=== PATIENT | female | born 1995 | race Caucasian/White ===

== ENCOUNTER → 2018-02-01 | Outpatient (CLI) | payer BC ==
[2018-02-01 13:13] LABS: BASO # 0.1 10^3/uL (0.0-0.2); BASO % 0.6 % (0.0-1.0); EOS # 0.1 10^3/uL (0.0-0.50); EOS % 1.4 % (0.0-3.0); HEMATOCRIT 39.9 % (36.0-47.0); HEMOGLOBIN 13.3 g/dl (12.0-15.5); IMMATURE GRANULOCYTE % 0.6 % (0-3.0); LYMPH # 1.3 10^3/uL (1.5-6.5); LYMPH % 17.1 % (24.0-44.0); MEAN CORPUSCULAR HEMOGLOBIN 27.7 pg (27.0-33.0); MEAN CORPUSCULAR HGB CONC 33.3 g/dl (32.0-36.5); MEAN CORPUSCULAR VOLUME 83.1 fl (80.0-96.0); MONO # 0.6 10^3/uL (0.0-0.8); MONO % 7.6 % (0.0-5.0); NEUTROPHILS # 5.7 10^3/uL (1.8-7.7); NEUTROPHILS % 72.7 % (36.0-66.0); PLATELET COUNT, AUTOMATED 263 10^3/uL (150-450); RED CELL DISTRIBUTION WIDTH 13.4 % (11.5-14.5); WHITE BLOOD COUNT 7.8 10^3/uL (4.0-10.0)
[2018-02-01 17:44] LABS: CHLAMYDIA DNA AMPLIFICATION NEGATIVE (NEGATIVE); GC DNA AMPLIFICATION NEGATIVE (NEGATIVE)
[2018-02-02 09:03] LABS: RUBELLA IgG QUALITATIVE IMMUNE (IMMUNE)
[2018-02-02 09:13] LABS: HBsAg Prenatal NEGATIVE (NEGATIVE)
[2018-02-02 09:32] LABS: HEPATITIS C VIRUS ABY INDEX 0.1 INDEX (<0.8)
[2018-02-02 09:32] LABS: HIV 1&2 SCREEN CENTAUR NEGATIVE (NEGATIVE)
== END ==
LOC: M SMT 09:15
DX: Z34.81 Encounter for supervision of other normal pregnancy, first trimester (principal); Z3A.09 9 weeks gestation of pregnancy
CPT/HCPCS: 86762

== ENCOUNTER → 2018-04-04 | Outpatient (CLI) | payer BC | LOC: M SMT 08:31 | DX: Z36.9 Encounter for antenatal screening, unspecified (principal); Z3A.18 18 weeks gestation of pregnancy | CPT/HCPCS: 76811 ==

== ENCOUNTER → 2018-05-09 | Outpatient (CLI) | payer BC | LOC: M SMT 08:13 | DX: Z34.02 Encounter for supervision of normal first pregnancy, second trimester (principal); Z3A.23 23 weeks gestation of pregnancy | CPT/HCPCS: 76816 ==

== ENCOUNTER → 2018-05-27 | Outpatient (CLI) | payer BC ==
[2018-05-27 10:17] LABS: BASO # 0.1 10^3/uL (0.0-0.2); BASO % 0.4 % (0.0-1.0); EOS # 0.1 10^3/uL (0.0-0.50); EOS % 1.1 % (0.0-3.0); HEMATOCRIT 33.7 % (36.0-47.0); HEMOGLOBIN 11.3 g/dl (12.0-15.5); IMMATURE GRANULOCYTE % 4.4 % (0-3.0); LYMPH # 1.4 10^3/uL (1.5-6.5); LYMPH % 12.1 % (24.0-44.0); MEAN CORPUSCULAR HEMOGLOBIN 28.4 pg (27.0-33.0); MEAN CORPUSCULAR HGB CONC 33.5 g/dl (32.0-36.5); MEAN CORPUSCULAR VOLUME 84.7 fl (80.0-96.0); MONO # 0.7 10^3/uL (0.0-0.8); MONO % 6.4 % (0.0-5.0); NEUTROPHILS # 8.6 10^3/uL (1.8-7.7); NEUTROPHILS % 75.6 % (36.0-66.0); PLATELET COUNT, AUTOMATED 201 10^3/uL (150-450); RED BLOOD COUNT 3.98 10^6/uL (4.00-5.40); RED CELL DISTRIBUTION WIDTH 13.4 % (11.5-14.5); WHITE BLOOD COUNT 11.4 10^3/uL (4.0-10.0)
[2018-05-27 10:57] LABS: GLUCOSE CHALLENGE TEST 1 HOUR 119 MG/DL (LESS THAN 140)
== END ==
LOC: M SMT 07:54
DX: Z36.89 Encounter for other specified antenatal screening (principal)
CPT/HCPCS: 82950

== ENCOUNTER → 2018-08-05 | Outpatient (REF) | payer BC | LOC: M LAB REF 13:35 | PROVIDERS: ATTEND Specialist | DX: Z34.83 Encounter for supervision of other normal pregnancy, third trimester (principal); Z3A.00 Weeks of gestation of pregnancy not specified ==

== ENCOUNTER → 2018-08-17 | Outpatient (CLI) | payer BC ==
--- NOTE | 2018-08-18 03:10 | REP ---
Clinical: Anatomical evaluation. Comparison: 08/17/2018 . Findings: Examination demonstrates a single live intrauterine in cephalic presentation. motion is identified by technologist. Placenta is noted anterior and grade I without evidence for placenta previa or abruption. Amniotic fluid volume is normal. Nuchal cord cannot be excluded. Gestational age by LMP 37 weeks 2 days with YESSY 09/05/2018 . Gestational age by current measurements 39 weeks 5-day with YESSY 08/19/2018 . FHR equals 144 beats per minute. BPD 9.8 cm 40 weeks 2 day HC 35.0 cm 40 weeks 5 day AC 36.3 cm 40 weeks 2 days FL 7.7 cm 39 weeks 4 days HC/AC ratio 0.96 Estimated weight 4009 grams ( greater than 97th percentile based on age by LMP ). Impression: 1. Single live advanced gestation in cephalic presentation. 2. Nuchal cord cannot be excluded. 3. Estimated weight greater than 97th percentile based on age by LMP Electronically Signed by Aaron Elizabeth MD 08/18/2018 03:02 A
== END ==
LOC: M SMT 14:37
PROVIDERS: ATTEND Advanced Practice Midwife
DX: O26.843 Uterine size-date discrepancy, third trimester (principal); Z3A.37 37 weeks gestation of pregnancy

== ENCOUNTER → 2019-06-28 | Outpatient (CLI) | payer BC, MEDICAID ==
[~2019-06-28] MED LIST: IBUP-1114 PO; MAPA500T2 PO; PRENTAB9 PO
== END ==
LOC: M LRY 14:43
PROVIDERS: ATTEND Physician Assistant
DX: N91.2 Amenorrhea, unspecified (principal)

== ENCOUNTER 2019-06-30 13:43 | Emergency (ER) | payer BC, MEDICAID, OTHER ==
[~2019-06-30] VITALS: Ht 182.9 cm; Wt 114.4 kg
[2019-06-30 14:55] LABS: BASO # 0.1 10^3/uL (0.0-0.2); BASO % 0.8 % (0.0-1.0); EOS # 0.3 10^3/uL (0.0-0.5); HEMATOCRIT 41.2 % (36.0-47.0); HEMOGLOBIN 13.2 g/dl (12.0-15.5); LYMPH # 1.7 10^3/uL (1.5-5.0); LYMPH % 20.1 % (24.0-44.0); MEAN CORPUSCULAR HEMOGLOBIN 26.2 pg (27.0-33.0); MEAN CORPUSCULAR VOLUME 81.9 fl (80.0-96.0); MONO # 0.6 10^3/uL (0.0-0.8); MONO % 6.7 % (0.0-5.0); NEUTROPHILS # 5.8 10^3/uL (1.5-8.5); NEUTROPHILS % 68.7 % (36.0-66.0); PLATELET COUNT, AUTOMATED 274 10^3/uL (150-450); RED BLOOD COUNT 5.03 10^6/uL (4.00-5.40); WHITE BLOOD COUNT 8.4 10^3/uL (4.0-10.0)
[2019-06-30 15:51] LABS: BLOOD UREA NITROGEN 11 MG/DL (7-18); CALCIUM LEVEL 9.4 MG/DL (8.5-10.1); CARBON DIOXIDE LEVEL 27 MEQ/L (21-32); CHLORIDE LEVEL 104 MEQ/L (98-107); CREATININE FOR GFR 0.78 MG/DL (0.55-1.30); GLOMERULAR FILTRATION RATE > 60.0 (>60); GLUCOSE, FASTING 88 MG/DL (70-100); HCG, SERUM QUANTITATIVE 7279 MIU/ML; POTASSIUM SERUM 4.4 MEQ/L (3.5-5.1); SODIUM LEVEL 140 MEQ/L (136-145)
--- NOTE | 2019-06-30 17:59 | REPVR ---
PROCEDURE INFORMATION: Exam: US First Trimester, Transabdominal and US , Transvaginal Exam date and time: 06/30/2019 4:48 PM Age: 23 years old Clinical indication: Lmp or gestational age (in weeks): 7w5d; Antepartum complications; Bleeding; ; Additional info: Vaginal spotting, pelvic cramping, 8wks gestation TECHNIQUE: Imaging protocol: Real-time transabdominal obstetrical ultrasound of the maternal pelvis and a first trimester , less than 14 weeks 0 days, with image documentation. Transvaginal imaging was used for better evaluation of the fetus and adnexa. COMPARISON: US OBS FOLL UP OR REPEAT EACH GES 08/17/2018 2:48 PM FINDINGS: GESTATION: Gestation: Single intrauterine gestational sac. Single 6 mm yolk sac. There appears to be a single pole. Heart rate: No heart rate is detected. Placenta: Tiny hypoechoic focus adjacent to the gestational sac, measuring 7 mm x 3 mm x 6 mm. This is favored to represent a tiny subchorionic hemorrhage. Amniotic fluid: Amniotic and chorionic fluid are normal for gestational age. BIOMETRY: Estimated gestational age: Mean gestational sac diameter measures 13 mm, corresponding to a gestational age of 6 weeks and 1 day. [place]-rump length measures 2 mm, compatible with a gestational age of 5 weeks and 5 days. Estimated due date: Estimated date of delivery is 02/23/2020. MATERNAL: Uterus: Uterus measures 9.3 x 5.0 x 6.4 cm. Cervix: Unremarkable. Right adnexa: Normal appearing right ovary. Positive blood flow. Left adnexa: Normal appearing left ovary. Positive blood flow. Intraperitoneal: No intraperitoneal free fluid. IMPRESSION: 1. Single very early intrauterine gestation, dating 6 weeks and 0 days. heart rate is not yet detected, likely due to the very early stage of the . Recommend a short term interval followup ultrasound. 2. There appears to be a tiny subchorionic hemorrhage. Electronically signed by: Carolyne Lott On 06/30/2019 17:59:45 PM
[2019-06-30 18:43] VITALS: BP 119/77
== END 2019-06-30 18:44 | disposition home or self-care (01) ==
LOC: M ED 13:43
DX: O23.41 Unspecified infection of urinary tract in pregnancy, first trimester (principal); O20.8 Other hemorrhage in early pregnancy; Z3A.01 Less than 8 weeks gestation of pregnancy; Z79.899 Other long term (current) drug therapy

== ENCOUNTER → 2019-07-11 | Outpatient (REF) | payer OTHER | LOC: M PLALAB 11:25 | PROVIDERS: ATTEND Advanced Practice Midwife | DX: O03.9 Complete or unspecified spontaneous abortion without complication (principal) ==

== ENCOUNTER → 2019-07-18 | Outpatient (REF) | payer OTHER | LOC: M PLALAB 12:17 | PROVIDERS: ATTEND Advanced Practice Midwife | DX: O03.9 Complete or unspecified spontaneous abortion without complication (principal); Z3A.00 Weeks of gestation of pregnancy not specified ==

== ENCOUNTER → 2019-11-27 | Outpatient (CLI) | payer OTHER | LOC: M WHC 11:07 | PROVIDERS: ATTEND Obstetrics & Gynecology | DX: Z34.81 Encounter for supervision of other normal pregnancy, first trimester (principal); Z53.9 Procedure and treatment not carried out, unspecified reason ==

== ENCOUNTER → 2019-12-26 | Outpatient (CLI) | payer OTHER ==
--- NOTE | 2019-12-26 15:30 | REP ---
REASON FOR EXAM: anatomy. Multiple ultrasonographic images of the gravid uterus show a single living intrauterine gestation in variable position. Doppler interrogation of the heart shows a heart rate of 146 beats per minute. The placenta is posterior and not low lying. The cervix measures 4.7 cm in length and is closed. The subjective amniotic fluid volume is within normal limits. Evaluation of the maternal adnexal spaces shows no abnormalities. BPD 4.7 cm = 20 weeks 1 day HC 17.5 cm = 20 weeks 0 days AC 16.1 cm = 21 weeks 1 day FL 3.5 cm = 21 weeks 1 day The estimated weight is 393 grams, which is at the 64th percentile for a 57-oqml-3-day gestational age. anatomical structures seen to be within normal limits are as follows: Thalami, cavum septum pellucidum, cerebellum, cisterna magna, cerebral ventricles, upper lip, stomach, cord insertion, three-vessel umbilical cord, kidneys, urinary bladder, spine, and upper and lower extremities. Four-chamber heart and ventricular outflow tracts were suboptimally imaged. IMPRESSION: Single living intrauterine gestation as described above with an estimated gestational age of 20 weeks 3 days via composite criteria and estimated date of delivery of 05/11/2020 by today's exam. No anomalies were detected, however, I recommend a followup examination to optimally visualize a four-chamber heart and the ventricular outflow tracts.
== END ==
LOC: M WHC 10:40
PROVIDERS: ATTEND Obstetrics & Gynecology
DX: Z34.81 Encounter for supervision of other normal pregnancy, first trimester (principal)

== ENCOUNTER → 2020-01-26 | Outpatient (CLI) | payer OTHER ==
--- NOTE | 2020-03-08 14:37 | REP ---
OBSTETRIC SONOGRAPHY HISTORY: Supervision of , estimated date of delivery (YESSY) 05/10/2020. FINDINGS: Scanning through the gravid uterus demonstrates a viable single intrauterine gestation in a breech lie. A posterior grade 1 placenta is seen without evidence of placenta previa or abruption. Amniotic fluid is subjectively normal. heart rate is recorded at 147 beats per minute. The following anatomic structures are identified and felt to be unremarkable: left-sided stomach, kidneys and bladder, four chamber heart with left and right ventricular outflow tract views, three-vessel cord, abdominal wall cord insertion, face, and lips. BIOMETRY CHART: BPD 59 mm 24 weeks 1 day Head Circumference 225 mm 24 weeks 4 days Abdominal Circumference 206 mm 25 weeks 2 days Femur Length 48 mm 26 weeks 0 days Humeral Length 46 mm 27 weeks 0 days Estimated Weight 801 g 56th percentile IMPRESSION: Single intrauterine gestation 25 weeks 0 days by today's sonographic findings. Estimated date of delivery (YESSY) 05/10/2020. An echogenic focus is noted in the right ventricle likely chordae tendineae. MTDD
== END ==
LOC: M WHC 16:03
PROVIDERS: ATTEND Advanced Practice Midwife
DX: Z34.82 Encounter for supervision of other normal pregnancy, second trimester (principal); Z3A.25 25 weeks gestation of pregnancy

== ENCOUNTER → 2020-01-30 | Outpatient (REF) | payer OTHER ==
[2020-03-19 11:51] LABS: BASO # 0.1 10^3/uL (0.0-0.2); BASO % 0.5 % (0.0-1.0); EOS # 0.2 10^3/uL (0.0-0.5); EOS % 1.5 % (0.0-3.0); HEMATOCRIT 34.2 % (36.0-47.0); HEMOGLOBIN 11.5 g/dl (12.0-15.5); LYMPH # 1.5 10^3/uL (1.5-5.0); LYMPH % 13.3 % (24.0-44.0); MEAN CORPUSCULAR HEMOGLOBIN 28.7 pg (27.0-33.0); MEAN CORPUSCULAR HGB CONC 33.6 g/dl (32.0-36.5); MEAN CORPUSCULAR VOLUME 85.3 fl (80.0-96.0); MONO # 0.7 10^3/uL (0.0-0.8); MONO % 6.5 % (0.0-5.0); NEUTROPHILS # 8.4 10^3/uL (1.5-8.5); NEUTROPHILS % 75.6 % (36.0-66.0); PLATELET COUNT, AUTOMATED 207 10^3/uL (150-450); RED BLOOD COUNT 4.01 10^6/uL (4.00-5.40); WHITE BLOOD COUNT 11.1 10^3/uL (4.0-10.0)
== END ==
LOC: M SFHCWAGY 10:46
PROVIDERS: ATTEND Advanced Practice Midwife
DX: Z34.82 Encounter for supervision of other normal pregnancy, second trimester (principal)

== ENCOUNTER → 2020-04-19 | Outpatient (CLI) | payer OTHER ==
--- NOTE | 2020-04-19 13:45 | REP ---
INDICATION: SIZE > DATES. COMPARISON: January 26, 2020.. TECHNIQUE: Transabdominal obstetric sonography: FINDINGS: Scanning through the gravid uterus demonstrates a viable single intrauterine gestation in cephalic lie. motion is observed and heart rate is recorded at 155 beats per minute. A posterior placenta is seen, grade 3, without evidence of placenta previa. Amniotic fluid is subjectively normal. Closed cervical length is measured at 3.6 cm transabdominally. No extrauterine abnormality is observed. . Biometry chart: BPD 8.7 cm, 35 weeks 0 days Head circumference 32.0 cm, 36 weeks 1 day Abdominal circumference 35.8 cm, 39 weeks 5 days Femur length 7.5 cm, 38 weeks 3 days Humeral length 6.9 cm 39 weeks 6 days HC\AC ratio 0.89 (0.91-1.10) Cephalic index normal 0.75 Estimated weight 3471 g, 7 lb 10 oz, 87th percentile for 37 weeks 0 days IMPRESSION: Viable single intrauterine gestation at 37 weeks 6 days by today's composite sonographic criteria. YESSY by today's sonography May 04, 2020. No complication identified. Estimated weight 87th percentile <Electronically signed by Jhony Leon > 04/19/20 [id number]
== END ==
LOC: M WHC 10:28
PROVIDERS: ATTEND Advanced Practice Midwife
DX: Z36.87 Encounter for antenatal screening for uncertain dates (principal); O26.849 Uterine size-date discrepancy, unspecified trimester; Z3A.37 37 weeks gestation of pregnancy

== ENCOUNTER → 2020-04-19 | Outpatient (REF) | payer OTHER | LOC: M SFHCWAGY 13:25 | PROVIDERS: ATTEND Obstetrics & Gynecology | DX: Z3A.37 37 weeks gestation of pregnancy (principal) ==

== ENCOUNTER 2020-05-10 08:07 | Inpatient (IN) | payer OTHER ==
[2020-05-10] VITALS (18 sets, daily range): BP systolic 105–150; BP diastolic 51–85
[~2020-05-10] VITALS: Ht 182.9 cm; Wt 137.0 kg
[2020-05-10] MEDS ORDERED: LACTATED RINGER'S 1000 ML IV STA (08:58)
[2020-05-10 09:45] LABS: HEMATOCRIT 34.7 % (36.0-47.0); HEMOGLOBIN 10.9 g/dl (12.0-15.5); MEAN CORPUSCULAR HEMOGLOBIN 24.6 pg (27.0-33.0); MEAN CORPUSCULAR HGB CONC 31.4 g/dl (32.0-36.5); MEAN CORPUSCULAR VOLUME 78.3 fl (80.0-96.0); PLATELET COUNT, AUTOMATED 200 10^3/uL (150-450); RED BLOOD COUNT 4.43 10^6/uL (4.00-5.40); WHITE BLOOD COUNT 9.9 10^3/uL (4.0-10.0)
[2020-05-10] MEDS: miSOPROStol 50 MCG 1/2 TAB (S0191) PO SCH ×4 (10:20→22:45)
--- NOTE | 2020-05-10 10:48 | HPEPDOC ---
Obstetrical History & Physical General Date of Admission May 10, 2020 at 08:07 History of Present Illness Chief Complaint: Induction of labor Information Provided By: Patient Age: 24 : 3 Term: 1 Pre-term: 0 Abortions: 1 Livin Care Care: Good Care Dating Final EDC: May 10, 2020 Final EDC by: LMP EGA at Admission: 40 Past Medical History Past Obstetrical History : Past Obstetrical History: Primgravida (2019) Type of Delivery: Spontaneous Vaginal Del. 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 Past Medical History Medical History seasonal allergies Surgical History: Denies/None Family History Significant Family History: Hypertension Social History Marital Status: Family situation: Spouse/partner home Psychosocial History: No pertinent psych hx * Smoker: non-smoker Alcohol: Denies Drugs: denies Abuse Violence Screening Have you been hit/kicked/slapp: No Have you been sexually assault: No Imunizations Tdap status: declined Influenza Status: declined Allergies Coded Allergies: No Known Allergies (Unverified , 09/03/18) Medications Scheduled No.137/Iron/Folic Acd ( Vitamin Tablet) 1 Tab Tab, 1 TAB PO DAILY Physical Examination Physical Examination GENERAL: Alert and oriented times three. BREAST: . ABDOMEN: Gravid and non-tender to touch. FETUS: Is vertex (VTX) by sterile vaginal examination (SVE), fetus is vertex (VTX) by Al. EFW 9-9.5# HEART RATE: Regular rate and rhythm. LUNGS: Clear to auscultation (CTA). EXTREMITIES: No edema. No clonus. Deep tendon reflexes (DTRs) + 2. Laboratory Data 24H LABS Laboratory Tests 2 05/10/20 09:29: Nucleated Red Blood Cells % (auto) 0.0 CBC/BMP Laboratory Tests 05/10/20 09:29 Pertinent Laboratoy Data Blood Type: A+ RBC Antibody Screen: Negative HIV: Negative Hepatitis B: Negative Hepatitis C: Negative Rapid Plasma Reagin: Nonreactive Rubella: Immune Chlamydia/Gonorrhea: Negative Group B Streptococcus: Negative Glucose Tolerance Test: 88 Anatomy Ultrasound Ultrasound Date: Dec 26, 2019 Placenta Location: Posterior (not low lying) Normal Anatomy: Yes (heart and outflow tracts poorly visualized) Placenta Previa: No Estimated Weight (grams): 393 (64%) Other Ultrasounds 10/27/2019 in office dating - 11w2d 01/26/2020 f/u anatomy - adequate visualization of remainder of anatomy. echogenic right ventricular foci. EFW 801gm 56% 04/19/2020 growth - Cephalic. 3471gm 87% for 37w0d. Steroid Therapy Steroid Therapy: No Vaginal Examination Dilation: Fingertip Effacement: 50% Station: -1 Cervical Consistency: Soft Cervical Position: Posterior Presentation: Cephalic presentation Assessment Heart Rate (FHR): 135 Variability: Moderate Accelerations: Positive Decelerations: None Tocometer Contractions: Yes Frequency: irregular, every 3-7 min. Strength: palpated as mild Assessment/Plan Assessment Kristin is a 24-year-old (G)3 para (P)1-0-1-1 at 40 weeks by 11-week ultrasound. Presents to Labor and Delivery (L&D) for elective IOL. History significant for prior macrosomic fetus with concerns for macrosomia again. Denies LOF, bleeding or regular UC. Plan Admit and orient. 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 Group B Streptococcus (GBS) negative Labs and intravenous (IV) per unit protocol. Counseled on misoprostol, Pitocin and induction of labor (IOL). Lactated Ringers (LR): Bolus 500 mL, then saline lock. Plans to labor ad ryan Anticipate normal spontaneous delivery (). C-S as appropriate. Jyothi Irvin CNM May 10, 2020 10:31
--- NOTE | 2020-05-10 18:32 | IPNPDOC ---
Text Note Date of Service The patient was seen on 05/10/20. NOTE Progress Remains comfortable. Mild irregular UC Cat I tracing Cervix softer, but otherwise unchanged. Will continue misoprostol over night. VS,Fishbone, I+O VS, Fishbone, I+O Laboratory Tests 05/10/20 09:29 Vital Signs Date Time Temp Pulse Resp B/P (MAP) Pulse Ox O2 Delivery O2 Flow Rate FiO2 05/10/20 18:14 83 144/71 (95) 05/10/20 18:11 98.0 18 Jyothi Irvin CNM May 10, 2020 18:32
[2020-05-11] VITALS (16 sets, daily range): BP systolic 110–143; BP diastolic 53–86
[2020-05-11] MEDS ORDERED: LR 1,000 ML IV SCH (03:06)
--- NOTE | 2020-05-11 03:06 | IPNPDOC ---
Text Note Date of Service The patient was seen on 05/11/20. NOTE Progress Reports feeling increased cramping "menstrual like" Denies LOF, bleeding Cat I tracing. UC irregular, Q 2-8 minutes SVE 2-3/-1 Will start pitocin. VS,Fishbone, I+O VS, Fishbone, I+O Laboratory Tests 05/10/20 09:29 Vital Signs Date Time Temp Pulse Resp B/P (MAP) Pulse Ox O2 Delivery O2 Flow Rate FiO2 05/11/20 02:35 76 18 110/53 (72) 05/11/20 00:18 97.4 I&O- Last 24 Hours up to 6 AM 05/11/20 06:00 Intake Total 900 ml Balance 900 ml Jyothi Irvin CNM May 11, 2020 03:06
[2020-05-11] MEDS ORDERED: OXYTOCIN DRIP 30 UNITS in IV 1 EA IV SCH ×2 (03:15→16:00)
--- NOTE | 2020-05-11 11:31 | DNPDOC ---
[facility] Delivery Note Delivery Note DATE OF DELIVERY: 05/11/2020 TIME OF : 1032 GENDER: Female APGARS: 8 and 9 WEIGHT: 4390 or 9 lbs. 11 oz. LACERATIONS: 1MLL ANESTHESIA: none ESTIMATED BLOOD LOSS: 200 ml COUNTS: 5 laparotomy sponges accounted for prior to after delivery. 2 sharps removed from delivery field. DELIVERY NOTE: On 05/11/2020 at 1032 Mrs. Gonzalez a 24-year-old 3 now para 2 had a spontaneous vaginal delivery of a liveborn female Apgars 8 and 9 weight was 9 lbs. 11 oz. 4390 g. Head was delivered occiput anterior (OA), followed by delivery of the shoulders and corpus. was handed to mom with a good cry. Cord was clamped times two and was cut by support person under my direction. Placenta was then drained and delivered grossly intact. A premixed bag of 500 mL of normal saline with 30 units of Pitocin was then bolused along with uterine massage until the uterus was firm. On inspection there was a 1MLL that was repaired with 3-0 Vicryl after infusion with 1% lidocaine. On reinspection, cervix, vagina, perineum was grossly intact and hemostatic. Mom a nd baby in recovery on stable condition. BEENA SONG MD. May 11, 2020 11:31
[2020-05-11] MEDS ORDERED: LIDOCAINE 1% MDV 20ML VIAL SC ONE (12:00)
[2020-05-11] MEDS ORDERED: DOCUSATE SODIUM 100 MG CAP PO PRN (16:00)
[2020-05-11] MEDS ORDERED: IBUPROFEN 600MG TAB PO PRN (16:00)
[2020-05-11] MEDS ORDERED: MEASLES,MUMPS,RUBELLA VACCINE INJ (MMR-II) (90707) SC SCH (16:00)
[2020-05-11] MEDS ORDERED: BENZOCAINE 20% HEMORRHOIDAL OINTMENT 28GM TUBE TOP PRN (16:00)
[2020-05-11] MEDS ORDERED: METHYLERGONOVINE MALEATE 0.2 MG TAB PO PRN (16:00)
[2020-05-11] MEDS ORDERED: MOM 30ML SUSPENSION UDC PO PRN (16:00)
[2020-05-11] MEDS ORDERED: ACETAMINOPHEN TAB 650MG DOSE (2X325MG) PO PRN (16:00)
[2020-05-11] MEDS ORDERED: ACETAMINOPHEN 500 MG TAB PO PRN (16:00)
[2020-05-11] MEDS ORDERED: RHOGAM 300 MCG (1500 IU) INJ (J2790) IM SCH (16:00)
[2020-05-11] MEDS ORDERED: ANUSOL HC CREAM 30GM TOP PRN (16:00)
[2020-05-11] MEDS ORDERED: IBUPROFEN 800 MG TAB PO PRN (16:00)
[2020-05-12 06:21] VITALS: BP 133/82
[2020-05-12] MEDS ORDERED: PRENATAL VITAMINS CHEWABLE TABLET PO SCH (09:00)
== END 2020-05-12 13:30 | disposition home or self-care (01) | DRG 560 ==
LOC: M LDI 08:07 → M OBS 05-11 12:40
PROVIDERS: ADMIT Advanced Practice Midwife; ATTEND Advanced Practice Midwife
PROC: 3E0DXGC Introduction of Other Therapeutic Substance into Mouth and Pharynx, External Approach (ICD-10-PCS; 2020-05-10)
PROC: 3E033VJ Introduction of Other Hormone into Peripheral Vein, Percutaneous Approach (ICD-10-PCS; 2020-05-10)
PROC: 10E0XZZ Delivery of Products of Conception, External Approach (ICD-10-PCS; principal; 2020-05-11)
PROC: 0HQ9XZZ Repair Perineum Skin, External Approach (ICD-10-PCS; 2020-05-11)
DX: O70.0 First degree perineal laceration during delivery (principal); Z37.0 Single live birth; Z3A.40 40 weeks gestation of pregnancy

== ENCOUNTER → 2020-10-01 | Outpatient (CLI) | payer OTHER ==
[2020-10-01 16:01] LABS: BASO # 0.1 10^3/uL (0.0-0.2); EOS # 0.2 10^3/uL (0.0-0.5); HEMATOCRIT 40.6 % (36.0-47.0); HEMOGLOBIN 13.2 g/dl (12.0-15.5); LYMPH % 25.9 % (24.0-44.0); MEAN CORPUSCULAR HEMOGLOBIN 26.6 pg (27.0-33.0); MEAN CORPUSCULAR HGB CONC 32.5 g/dl (32.0-36.5); MEAN CORPUSCULAR VOLUME 81.7 fl (80.0-96.0); MONO # 0.5 10^3/uL (0.0-0.8); MONO % 6.9 % (2.0-8.0); NEUTROPHILS # 4.8 10^3/uL (1.5-8.5); NEUTROPHILS % 62.8 % (36.0-66.0); PLATELET COUNT, AUTOMATED 260 10^3/uL (150-450); RED BLOOD COUNT 4.97 10^6/uL (4.00-5.40); WHITE BLOOD COUNT 7.6 10^3/uL (4.0-10.0)
[2020-10-01 16:41] LABS: ALT/SGPT 29 U/L (12-78); BILIRUBIN,TOTAL 0.2 MG/DL (0.2-1.0); BLOOD UREA NITROGEN 16 MG/DL (7-18); CARBON DIOXIDE LEVEL 30 MEQ/L (21-32); CHLORIDE LEVEL 104 MEQ/L (98-107); CHOLESTEROL LEVEL 179 MG/DL (<200); CHOLESTEROL RISK RATIO 3.729 (<5); CREATININE FOR GFR 0.79 MG/DL (0.55-1.30); GLOMERULAR FILTRATION RATE > 60.0 (>60); GLUCOSE, FASTING 89 MG/DL (70-100); HDL CHOLESTEROL 48 MG/DL (>40); LDL CHOLESTEROL 104 MG/DL (<100); NON-HDL-C 131 MG/DL; POTASSIUM SERUM 3.6 MEQ/L (3.5-5.1); SODIUM LEVEL 139 MEQ/L (136-145); TOTAL PROTEIN 7.7 GM/DL (6.4-8.2); TRIGLYCERIDES LEVEL 137 MG/DL (<150)
[2020-10-01 16:42] LABS: ALBUMIN 3.9 GM/DL (3.2-5.2)
== END ==
LOC: M WUC 13:47
PROVIDERS: ATTEND Family Medicine
DX: R07.9 Chest pain, unspecified (principal)

== ENCOUNTER → 2020-11-18 | Outpatient (CLI) | payer OTHER ==
[2020-11-18 18:01] LABS: FREE T4 0.78 NG/DL (0.76-1.46); THYROID STIMULATING HORMONE 6.5 uIU/ML (0.358-3.740)
== END ==
LOC: M WUC 10:18
PROVIDERS: ATTEND Family Medicine
DX: E03.9 Hypothyroidism, unspecified (principal)

== ENCOUNTER → 2021-01-02 | Outpatient (CLI) | payer OTHER ==
[2021-01-02 17:11] LABS: FREE T4 0.68 NG/DL (0.76-1.46); THYROID STIMULATING HORMONE 22.7 uIU/ML (0.358-3.740)
== END ==
LOC: M WUC 12:31
PROVIDERS: ATTEND Family Medicine
DX: E03.9 Hypothyroidism, unspecified (principal)

== ENCOUNTER → 2021-01-17 | Outpatient (CLI) | payer OTHER ==
[2021-01-17 17:43] LABS: FREE T4 0.68 NG/DL (0.76-1.46); THYROGLOBULIN ANTIBODY > 500.0 U/ML (<60.0); THYROID PEROXIDASE ANTIBODY > 1300.0 U/ML (<60.0)
== END ==
LOC: M WUC 12:17
PROVIDERS: ATTEND Family Medicine
DX: E03.9 Hypothyroidism, unspecified (principal)

== ENCOUNTER → 2021-02-20 | Outpatient (CLI) | payer OTHER ==
--- NOTE | 2021-02-20 11:42 | REP ---
INDICATION: CRUSH INJURY TO RIGHT THUMB. COMPARISON: None. TECHNIQUE: Four views FINDINGS: The joint spaces are symmetric and relatively well maintained. There is no evidence of acute fracture or destructive osseous lesion. On the lateral view the proximal aspect of the 1st metacarpal is under penetrated and cannot be assessed. IMPRESSION: Negative hand. But with limitations as described above. If the patient has pain in the aforementioned region repeat is necessary <Electronically signed by Juan Martínez > 02/20/21 [id number]
== END ==
LOC: M WUC 10:55
PROVIDERS: ATTEND Nurse Practitioner Family
DX: M79.644 Pain in right finger(s) (principal)

== ENCOUNTER → 2021-03-17 | Outpatient (CLI) | payer OTHER ==
[2021-03-17 13:33] LABS: FREE T4 1.07 NG/DL (0.76-1.46); THYROID STIMULATING HORMONE 2.88 uIU/ML (0.358-3.740)
== END ==
LOC: M WUC 09:46
PROVIDERS: ATTEND Nurse Practitioner Family
DX: E06.3 Autoimmune thyroiditis (principal)

== ENCOUNTER → 2021-05-13 | Outpatient (REF) | payer OTHER | LOC: M LAB REF 17:48 | PROVIDERS: ATTEND Family Medicine | DX: Z01.419 Encounter for gynecological examination (general) (routine) without abnormal findings (principal) ==

== ENCOUNTER → 2021-07-11 | Outpatient (CLI) | payer OTHER ==
[2021-07-11 19:44] LABS: FREE T4 1.04 NG/DL (0.76-1.46); THYROID STIMULATING HORMONE 3.9 uIU/ML (0.358-3.740)
== END ==
LOC: M WUC 14:31
PROVIDERS: ATTEND Internal Medicine Endocrinology, Diabetes & Metabolism
DX: E06.3 Autoimmune thyroiditis (principal)

== ENCOUNTER → 2021-11-03 | Outpatient (CLI) | payer OTHER ==
[2021-11-03 17:06] LABS: FREE T4 0.99 NG/DL (0.76-1.46); THYROID STIMULATING HORMONE 4.25 uIU/ML (0.358-3.740)
== END ==
LOC: M WUC 13:11
PROVIDERS: ATTEND Nurse Practitioner Family
DX: E06.3 Autoimmune thyroiditis (principal)

== ENCOUNTER → 2021-11-14 | Outpatient (CLI) | payer OTHER | LOC: M PLALAB 14:44 | PROVIDERS: ATTEND Advanced Practice Midwife | DX: O20.9 Hemorrhage in early pregnancy, unspecified (principal) ==

== ENCOUNTER → 2021-11-16 | Outpatient (CLI) | payer OTHER | LOC: M LAB 15:30 | PROVIDERS: ATTEND Advanced Practice Midwife | DX: O20.9 Hemorrhage in early pregnancy, unspecified (principal) ==

== ENCOUNTER → 2021-11-18 | Outpatient (CLI) | payer OTHER | LOC: M PLALAB 13:35 | PROVIDERS: ATTEND Advanced Practice Midwife | DX: Z01.84 Encounter for antibody response examination (principal) ==

== ENCOUNTER → 2021-11-18 | Outpatient (CLI) | payer OTHER | LOC: M WHC 12:28 | PROVIDERS: ATTEND Advanced Practice Midwife | DX: O20.9 Hemorrhage in early pregnancy, unspecified (principal); Z3A.01 Less than 8 weeks gestation of pregnancy ==

== ENCOUNTER → 2021-12-05 | Outpatient (REF) | payer OTHER ==
[2021-12-05 20:50] LABS: FREE T4 1.06 NG/DL (0.76-1.46); THYROID STIMULATING HORMONE 2.92 uIU/ML (0.358-3.740)
== END ==
LOC: M LAB REF 20:02
PROVIDERS: ATTEND Nurse Practitioner Family
DX: E06.3 Autoimmune thyroiditis (principal)

== ENCOUNTER → 2021-12-19 | Outpatient (CLI) | payer OTHER ==
[2021-12-19 13:21] LABS: BASO % 0.3 % (0.0-1.0); EOS # 0.1 10^3/uL (0.0-0.5); HEMATOCRIT 38.6 % (36.0-47.0); HEMOGLOBIN 13.1 g/dl (12.0-15.5); LYMPH # 1.3 10^3/uL (1.5-5.0); LYMPH % 18.3 % (24.0-44.0); MEAN CORPUSCULAR HEMOGLOBIN 28.3 pg (27.0-33.0); MEAN CORPUSCULAR HGB CONC 33.9 g/dl (32.0-36.5); MEAN CORPUSCULAR VOLUME 83.4 fl (80.0-96.0); MONO # 0.4 10^3/uL (0.0-0.8); MONO % 5.9 % (2.0-8.0); NEUTROPHILS # 5.1 10^3/uL (1.5-8.5); NEUTROPHILS % 73.1 % (36.0-66.0); PLATELET COUNT, AUTOMATED 196 10^3/uL (150-450); RED BLOOD COUNT 4.63 10^6/uL (4.00-5.40)
[2021-12-19 14:49] LABS: HEPATITIS C VIRUS ABY INDEX 0.1 INDEX (<0.8); HIV 1&2 SCREEN CENTAUR NEGATIVE (NEGATIVE)
[2021-12-19 15:03] LABS: GC DNA AMPLIFICATION NEGATIVE (NEGATIVE)
== END ==
LOC: M PLALAB 09:57
PROVIDERS: ATTEND Advanced Practice Midwife
DX: O41.8X10 Other specified disorders of amniotic fluid and membranes, first trimester, not applicable or unspecified (principal)

== ENCOUNTER → 2022-01-07 | Outpatient (REF) | payer OTHER ==
[2022-01-07 19:37] LABS: FREE T4 1.01 NG/DL (0.76-1.46); THYROID STIMULATING HORMONE 1.48 uIU/ML (0.358-3.740)
== END ==
LOC: M LAB REF 18:46
PROVIDERS: ATTEND Nurse Practitioner Family
DX: E06.3 Autoimmune thyroiditis (principal)

== ENCOUNTER → 2022-02-13 | Outpatient (CLI) | payer OTHER | LOC: M WHC 09:59 | PROVIDERS: ATTEND Specialist | DX: O32.1XX0 Maternal care for breech presentation, not applicable or unspecified (principal); Z36.89 Encounter for other specified antenatal screening; Z3A.19 19 weeks gestation of pregnancy ==

== ENCOUNTER → 2022-02-13 | Outpatient (CLI) | payer OTHER | LOC: M PLALAB 11:21 | PROVIDERS: ATTEND Obstetrics & Gynecology | DX: O36.0920 Maternal care for other rhesus isoimmunization, second trimester, not applicable or unspecified (principal) ==

== ENCOUNTER → 2022-02-24 | Outpatient (CLI) | payer OTHER ==
[2022-02-24 17:56] LABS: FREE T4 1.05 NG/DL (0.76-1.46); THYROID STIMULATING HORMONE 1.71 uIU/ML (0.358-3.740)
== END ==
LOC: M WUC 10:40
PROVIDERS: ATTEND Nurse Practitioner Family
DX: E06.3 Autoimmune thyroiditis (principal)

== ENCOUNTER → 2022-03-26 | Outpatient (CLI) | payer OTHER ==
[2022-03-26 17:53] LABS: FREE T4 1.07 NG/DL (0.76-1.46); THYROID STIMULATING HORMONE 1.51 uIU/ML (0.358-3.740)
== END ==
LOC: M WUC 11:04
PROVIDERS: ATTEND Nurse Practitioner Family
DX: E06.3 Autoimmune thyroiditis (principal)

== ENCOUNTER → 2022-04-10 | Outpatient (CLI) | payer OTHER ==
[2022-04-10 16:28] LABS: FREE T4 1.01 NG/DL (0.76-1.46); THYROID STIMULATING HORMONE 1.44 uIU/ML (0.358-3.740)
== END ==
LOC: M PLALAB 11:41
PROVIDERS: ATTEND Advanced Practice Midwife
DX: O99.282 Endocrine, nutritional and metabolic diseases complicating pregnancy, second trimester (principal); Z3A.00 Weeks of gestation of pregnancy not specified

== ENCOUNTER → 2022-04-10 | Outpatient (CLI) | payer OTHER ==
[2022-04-10 15:50] LABS: HEMATOCRIT 36.4 % (36.0-47.0); HEMOGLOBIN 11.6 g/dl (12.0-15.5); MEAN CORPUSCULAR HEMOGLOBIN 26.9 pg (27.0-33.0); MEAN CORPUSCULAR HGB CONC 31.9 g/dl (32.0-36.5); MEAN CORPUSCULAR VOLUME 84.5 fl (80.0-96.0); PLATELET COUNT, AUTOMATED 201 10^3/uL (150-450); RED BLOOD COUNT 4.31 10^6/uL (4.00-5.40); WHITE BLOOD COUNT 10.1 10^3/uL (4.0-10.0)
[2022-04-10 17:48] LABS: GC DNA AMPLIFICATION NEGATIVE (NEGATIVE)
== END ==
LOC: M PLALAB 11:37
PROVIDERS: ATTEND Specialist
DX: O99.282 Endocrine, nutritional and metabolic diseases complicating pregnancy, second trimester (principal); E06.3 Autoimmune thyroiditis; O99.212 Obesity complicating pregnancy, second trimester; E66.9 Obesity, unspecified; Z3A.23 23 weeks gestation of pregnancy

== ENCOUNTER → 2022-05-11 | Outpatient (CLI) | payer OTHER ==
[2022-05-11 18:33] LABS: THYROID STIMULATING HORMONE 1.556 uIU/ML (0.55-4.78)
[2022-05-11 18:35] LABS: FREE T4 0.95 NG/DL (0.89-1.76)
== END ==
LOC: M WUC 14:11
PROVIDERS: ATTEND Nurse Practitioner Family
DX: E06.3 Autoimmune thyroiditis (principal)

== ENCOUNTER → 2022-05-15 | Outpatient (CLI) | payer OTHER | LOC: M PLALAB 11:41 | PROVIDERS: ATTEND Advanced Practice Midwife | DX: O36.0930 Maternal care for other rhesus isoimmunization, third trimester, not applicable or unspecified (principal); Z3A.00 Weeks of gestation of pregnancy not specified ==

== ENCOUNTER → 2022-06-12 | Outpatient (REF) | payer OTHER | LOC: M SFHCWAGY 12:48 | PROVIDERS: ATTEND Advanced Practice Midwife | DX: Z34.83 Encounter for supervision of other normal pregnancy, third trimester (principal) ==

== ENCOUNTER → 2022-06-26 | Outpatient (CLI) | payer OTHER | LOC: M WHC 13:05 | PROVIDERS: ATTEND Advanced Practice Midwife | DX: O99.283 Endocrine, nutritional and metabolic diseases complicating pregnancy, third trimester (principal); Z3A.40 40 weeks gestation of pregnancy ==

== ENCOUNTER 2022-07-05 11:01 | Inpatient (IN) | payer OTHER ==
[~2022-07-05] VITALS: Ht 182.9 cm; Wt 141.3 kg
[2022-07-05] MEDS ORDERED: AMOX500C PO (11:21)
[2022-07-05] MEDS ORDERED: LEVO175T2 PO (11:21)
[2022-07-05] MEDS ORDERED: HOME MED LIST COMPLETE! XX SCH (11:25)
[2022-07-05 11:42] VITALS: BP 129/73
[2022-07-05 11:52] LABS: HEMATOCRIT 36.4 % (36.0-47.0); HEMOGLOBIN 11.4 g/dl (12.0-15.5); MEAN CORPUSCULAR HEMOGLOBIN 23.9 pg (27.0-33.0); MEAN CORPUSCULAR HGB CONC 31.3 g/dl (32.0-36.5); MEAN CORPUSCULAR VOLUME 76.3 fl (80.0-96.0); PLATELET COUNT, AUTOMATED 233 10^3/uL (150-450); RED BLOOD COUNT 4.77 10^6/uL (4.00-5.40); WHITE BLOOD COUNT 9.8 10^3/uL (4.0-10.0)
[2022-07-05] MEDS ORDERED: OXYTOCIN DRIP 30 UNITS in IV 1 EA IV PRN (12:40)
[2022-07-05] MEDS ORDERED: LIDOCAINE 1% MDV 20ML VIAL INFIL PRN (12:40)
[2022-07-05] MEDS: miSOPROStol 50MCG 1/2 TABLET SL SCH ×3 (12:53→21:02)
[2022-07-05 12:54] VITALS: BP 125/79
[2022-07-05 15:08] VITALS: BP 147/78
[2022-07-05 17:04] VITALS: BP 126/83
[2022-07-05 21:07] VITALS: BP 101/55
[2022-07-06] VITALS (9 sets, daily range): BP systolic 116–141; BP diastolic 61–84
[2022-07-06] MEDS: miSOPROStol 50MCG 1/2 TABLET SL SCH (02:16)
[2022-07-06] MEDS: LEVOTHYROXINE 75MCG TABLET (0.075MG) PO SCH (06:00)
[2022-07-06] MEDS: LEVOTHYROXINE 100MCG TABLET (0.1MG) PO SCH (06:00)
[2022-07-06] MEDS ORDERED: IBUPROFEN 800 MG TAB PO PRN (07:55)
[2022-07-06] MEDS ORDERED: DOCUSATE SODIUM 100MG CAPSULE PO PRN (07:55)
[2022-07-06] MEDS ORDERED: IBUPROFEN 600MG TAB PO PRN (07:55)
[2022-07-06] MEDS ORDERED: DIBUCAINE 1% OINTMENT 30GM TOP PRN (07:55)
[2022-07-06] MEDS ORDERED: METHYLERGONOVINE MALEATE 0.2 MG TAB PO PRN (07:55)
[2022-07-06] MEDS ORDERED: ACETAMINOPHEN 500 MG TAB PO PRN (07:55)
[2022-07-06] MEDS ORDERED: ACETAMINOPHEN TAB 650MG DOSE (2X325MG) PO PRN (07:55)
[2022-07-06] MEDS ORDERED: RHOGAM 300MCG (1500IU) INJ IM SCH (07:55)
[2022-07-06] MEDS: PRENATAL VITAMINS CHEWABLE TABLET PO SCH (09:00)
[2022-07-07 06:00] VITALS: BP 117/64
[2022-07-07] MEDS: LEVOTHYROXINE 75MCG TABLET (0.075MG) PO SCH ×2 (06:22→06:42)
[2022-07-07] MEDS: LEVOTHYROXINE 100MCG TABLET (0.1MG) PO SCH ×2 (06:22→06:41)
[2022-07-07] MEDS: PRENATAL VITAMINS CHEWABLE TABLET PO SCH (07:50)
[2022-07-07] MEDS ORDERED: COLA100C5 PO (11:06)
[2022-07-07] MEDS ORDERED: IBUP-1022 PO (11:06)
[2022-07-07] MEDS ORDERED: ACET-683 PO (11:06)
[2022-07-08] MEDS ORDERED: MEASLES,MUMPS,RUBELLA VACCINE INJ (MMR-II) SC.IMMUN ONE (09:00)
== END 2022-07-07 14:30 | disposition home or self-care (01) | DRG 560 ==
LOC: M LDI 11:01 → M OBS 07-06 10:08
PROVIDERS: ADMIT Specialist; ATTEND Specialist
PROC: 3E0DXGC Introduction of Other Therapeutic Substance into Mouth and Pharynx, External Approach (ICD-10-PCS; 2022-07-05)
PROC: 10E0XZZ Delivery of Products of Conception, External Approach (ICD-10-PCS; principal; 2022-07-06)
PROC: 0KQM0ZZ Repair Perineum Muscle, Open Approach (ICD-10-PCS; 2022-07-06)
DX: O70.1 Second degree perineal laceration during delivery (principal); E03.9 Hypothyroidism, unspecified; Z37.0 Single live birth; Z3A.39 39 weeks gestation of pregnancy; O36.63X0 Maternal care for excessive fetal growth, third trimester, not applicable or unspecified; O99.284 Endocrine, nutritional and metabolic diseases complicating childbirth

== ENCOUNTER → 2022-08-18 | Outpatient (REF) | payer OTHER ==
[~2022-08-18] MED LIST changes: +ACET-683 PO; +AMOX500C PO; +COLA100C5 PO; +IBUP-1022 PO; +LEVO175T2 PO
== END ==
LOC: M LAB REF 16:57
PROVIDERS: ATTEND Nurse Practitioner Family
DX: R05.1 Acute cough (principal)

== ENCOUNTER → 2022-09-14 | Outpatient (CLI) | payer OTHER ==
[2022-09-14 19:49] LABS: FREE T4 1.04 NG/DL (0.89-1.76); THYROID STIMULATING HORMONE 0.387 uIU/ML (0.55-4.78)
== END ==
LOC: M WUC 11:25
PROVIDERS: ATTEND Nurse Practitioner Family
DX: E06.3 Autoimmune thyroiditis (principal)

== ENCOUNTER → 2022-12-14 | Outpatient (CLI) | payer OTHER ==
[2022-12-14 11:10] LABS: FREE T4 0.76 NG/DL (0.89-1.76); THYROID STIMULATING HORMONE 10.519 uIU/ML (0.55-4.78)
== END ==
LOC: M LAB 10:25
PROVIDERS: ATTEND Nurse Practitioner Family
DX: E06.3 Autoimmune thyroiditis (principal)

== ENCOUNTER → 2023-02-02 | Outpatient (CLI) | payer OTHER ==
[2023-02-02 18:38] LABS: FREE T4 1.02 NG/DL (0.89-1.76); THYROID STIMULATING HORMONE 3.621 uIU/ML (0.55-4.78)
== END ==
LOC: M WUC 11:21
PROVIDERS: ATTEND Nurse Practitioner Family
DX: E06.3 Autoimmune thyroiditis (principal)

== ENCOUNTER → 2023-04-06 | Outpatient (REF) | payer OTHER | LOC: M LABWUC 16:39 | PROVIDERS: ATTEND Registered Nurse | DX: N91.2 Amenorrhea, unspecified (principal) ==

== ENCOUNTER → 2023-06-11 | Outpatient (REF) | payer OTHER ==
[2023-06-11 16:35] LABS: FREE T4 0.93 NG/DL (0.89-1.76); THYROID STIMULATING HORMONE 3.602 uIU/ML (0.55-4.78)
== END ==
LOC: M LABWUC 14:10
PROVIDERS: ATTEND Nurse Practitioner Family
DX: E06.3 Autoimmune thyroiditis (principal)

== ENCOUNTER → 2023-10-18 | Outpatient (REF) | payer OTHER ==
[2023-10-18 18:11] LABS: FREE T4 0.8 NG/DL (0.89-1.76); THYROID STIMULATING HORMONE 11.76 uIU/ML (0.55-4.78)
== END ==
LOC: M LABWUC 16:13
PROVIDERS: ATTEND Nurse Practitioner Family
DX: E06.3 Autoimmune thyroiditis (principal)

== ENCOUNTER → 2023-12-22 | Outpatient (REF) | payer OTHER ==
[2023-12-22 17:49] LABS: FREE T4 0.76 NG/DL (0.89-1.76); THYROID STIMULATING HORMONE 17.84 uIU/ML (0.55-4.78)
== END ==
LOC: M LAB REF 16:47 → M LABWUC 16:47
PROVIDERS: ATTEND Nurse Practitioner Family
DX: E06.3 Autoimmune thyroiditis (principal)

== ENCOUNTER → 2024-02-18 | Outpatient (CLI) | payer OTHER ==
[2024-02-18 18:15] LABS: FREE T4 1.14 NG/DL (0.89-1.76); THYROID STIMULATING HORMONE 2.791 uIU/ML (0.55-4.78)
== END ==
LOC: M WUC 14:45
PROVIDERS: ATTEND Nurse Practitioner Family
DX: E06.3 Autoimmune thyroiditis (principal)

== ENCOUNTER → 2024-08-15 | Outpatient (CLI) | payer OTHER ==
[2024-08-15 19:19] LABS: THYROID STIMULATING HORMONE < 0.010 uIU/ML (0.55-4.78)
[2024-08-15 19:20] LABS: FREE T4 1.63 NG/DL (0.89-1.76)
== END ==
LOC: M WUC 13:19
PROVIDERS: ATTEND Nurse Practitioner Family
DX: E06.3 Autoimmune thyroiditis (principal)

== ENCOUNTER → 2024-08-24 | Outpatient (CLI) | payer OTHER ==
[2024-08-24 15:16] LABS: CORTISOL AM 13.4 UG/DL (4.3-22.4)
[2024-08-24 15:19] LABS: LUTEINIZING HORMONE 4.9 mIU/ML; THYROID STIMULATING HORMONE < 0.010 uIU/ML (0.55-4.78)
[2024-08-24 15:20] LABS: FREE T4 1.71 NG/DL (0.89-1.76)
== END ==
LOC: M WUC 08:33
PROVIDERS: ATTEND Nurse Practitioner Family
DX: E06.3 Autoimmune thyroiditis (principal); N91.2 Amenorrhea, unspecified

== ENCOUNTER → 2024-09-29 | Outpatient (CLI) | payer OTHER | LOC: M PLARAD 14:51 | PROVIDERS: ATTEND Nurse Practitioner Family | DX: E22.1 Hyperprolactinemia (principal); G93.0 Cerebral cysts; J32.2 Chronic ethmoidal sinusitis; J32.0 Chronic maxillary sinusitis ==

== ENCOUNTER → 2025-01-15 | Outpatient (CLI) | payer OTHER ==
[2025-01-15 14:50] LABS: FREE T4 1.39 NG/DL (0.89-1.76)
== END ==
LOC: M WUC 12:48
PROVIDERS: ATTEND Nurse Practitioner Family
DX: E22.1 Hyperprolactinemia (principal); E06.3 Autoimmune thyroiditis

== ENCOUNTER → 2025-02-28 | Outpatient (CLI) | payer OTHER ==
[~2025-02-28] MED LIST changes: -IBUP-1022 PO; +IBUP600T42 PO
== END ==
LOC: M WUC 15:19
PROVIDERS: ATTEND Student in an Organized Health Care Education/Training Program
DX: M25.561 Pain in right knee (principal)

== ENCOUNTER → 2025-03-12 | Outpatient (CLI) | payer OTHER ==
[2025-03-12 18:51] LABS: FREE T4 1.18 NG/DL (0.89-1.76)
== END ==
LOC: M WUC 15:09
PROVIDERS: ATTEND Nurse Practitioner Family
DX: E22.1 Hyperprolactinemia (principal); E06.3 Autoimmune thyroiditis

== ENCOUNTER → 2025-03-26 | Outpatient (CLI) | payer OTHER | LOC: M PLALAB 16:11 | PROVIDERS: ATTEND Advanced Practice Midwife | DX: O09.299 Supervision of pregnancy with other poor reproductive or obstetric history, unspecified trimester (principal); Z3A.00 Weeks of gestation of pregnancy not specified ==

== ENCOUNTER → 2025-03-28 | Outpatient (CLI) | payer OTHER | LOC: M PLALAB 16:19 | PROVIDERS: ATTEND Advanced Practice Midwife | DX: O09.299 Supervision of pregnancy with other poor reproductive or obstetric history, unspecified trimester (principal); Z3A.00 Weeks of gestation of pregnancy not specified ==

== ENCOUNTER → 2025-04-10 | Outpatient (CLI) | payer OTHER ==
[2025-04-10 18:13] LABS: FREE T4 1.13 NG/DL (0.89-1.76)
== END ==
LOC: M WUC 13:02
PROVIDERS: ATTEND Nurse Practitioner Family
DX: E06.3 Autoimmune thyroiditis (principal)

== ENCOUNTER → 2025-05-14 | Outpatient (CLI) | payer OTHER ==
[2025-05-14 17:42] LABS: PLATELET COUNT, AUTOMATED 198 10^3/uL (150-450)
[2025-05-14 18:19] LABS: HIV 1&2 SCREEN NEGATIVE (NEGATIVE)
[2025-05-14 18:22] LABS: Trichomonas vaginalis (AMP) NOT DETECTED (NEGATIVE)
[2025-05-14 18:27] LABS: HEPATITIS C VIRUS ABY INDEX 0.04 INDEX (<0.8)
[2025-05-14 18:46] LABS: GC DNA AMPLIFICATION NEGATIVE (NEGATIVE)
== END ==
LOC: M PLALAB 15:37
PROVIDERS: ATTEND Advanced Practice Midwife
DX: Z34.81 Encounter for supervision of other normal pregnancy, first trimester (principal)

== ENCOUNTER → 2025-05-17 | Outpatient (CLI) | payer OTHER ==
[2025-05-17 13:11] LABS: FREE T4 1.37 NG/DL (0.89-1.76)
== END ==
LOC: M WUC 09:01
PROVIDERS: ATTEND Nurse Practitioner Family
DX: E06.3 Autoimmune thyroiditis (principal)